=== PATIENT | male | born 1950 | race Caucasian/White ===

== ENCOUNTER 2023-10-30 09:00 | Inpatient (IN) | payer OTHER ==
[2023-10-30 11:02] LABS: Hematocrit 42.7 % (38.8-50.0); Hemoglobin 14.9 g/dL (13.5-17.5); Mean Corpuscular HGB CONC 34.9 g/dL (32.0-36.0); Mean Corpuscular Hemoglobin 32.8 pg (27.0-33.0); Mean Corpuscular Volume 94.1 fl (81.2-95.1); Mean Platelet Volume 10.7 fl (7.4-10.4); Platelet Count 183 10x3/uL (150-450); Red Blood Cell (RBC) Count 4.54 10x6/uL (4.32-5.72); White Blood Cell (WBC) Count 5.5 10x3/uL (3.5-10.5)
[2023-10-30 11:08] LABS: Anion Gap 13 mmol/L (10-20); BUN (Urea Nitrogen) 11 mg/dL (8.4-25.7); Calc. Creatinine Clearance 0 mL/min (70-130); Calcium 9.3 mg/dL (7.8-10.44); Carbon Dioxide 23 mmol/L (23-31); Chloride 106 mmol/L (98-107); Estimated GFR 92; Glucose 100 mg/dL (83-110); Potassium 4.7 mmol/L (3.5-5.1); Sodium 137 mmol/L (136-145)
[2023-10-31] MEDS ORDERED: Bupivacaine PF 0.5% 30 ML VIAL ONE (06:17)
[2023-10-31] MEDS ORDERED: EPINEPHrine 1 MG/ML VIAL ONE (06:17)
[2023-10-31] MEDS ORDERED: Dexamethasone 4 mg/ml Vial ONE (06:17)
[2023-10-31] MEDS ORDERED: Albumin 5% 500 ML ONE (06:17)
[2023-10-31] MEDS ORDERED: Heparin 10,000 UNITS/1 ML VIAL 30,000 UNITS in Sodium Chloride 0.9% 1,000 ML FS SCH (06:45)
[2023-10-31] MEDS ORDERED: CEFAZOLIN 1 GM VIAL ONE (06:45)
[2023-10-31] MEDS ORDERED: Lidocaine 2% PF 5 ML VIAL ONE (06:45)
[2023-10-31] MEDS ORDERED: PROPOFOL 20 ML ONE ×2 (06:45→08:53)
[2023-10-31] MEDS ORDERED: Norepinephrine 4 MG/4 ML VIAL ONE (06:45)
[2023-10-31] MEDS ORDERED: Aminocaproic Acid 5 GM/20 ML VIAL ONE ×2 (06:45→07:47)
[2023-10-31] MEDS ORDERED: Lidocaine 2% PF 100 mg/5 ml Syringe ONE ×2 (06:45→07:47)
[2023-10-31] MEDS ORDERED: Rocuronium Bromide 10 MG/ML (10ML VIAL) ONE ×2 (06:45→09:00)
[2023-10-31] MEDS ORDERED: PHENYLEPHRINE-NS 100 MCG/ML 10 ML SYRINGE ONE (06:45)
[2023-10-31] MEDS ORDERED: Midazolam HCl 2 mg/2 ml Vial ONE (06:46)
[2023-10-31] MEDS ORDERED: ePHEDrine Sulfate 50 MG/10 ML VIAL ONE (06:46)
[2023-10-31] MEDS ORDERED: Fentanyl 250 MCG/5 ML VIAL ONE (06:46)
[2023-10-31] MEDS ORDERED: Heparin 5,000 UNITS/ML VIAL ONE ×2 (06:53→07:47)
[2023-10-31] MEDS ORDERED: Lidocaine 1% MPF 2 ML VIAL ONE (06:54)
[2023-10-31] MEDS ORDERED: CEFAZOLIN 2 GM VIAL ONE (06:54)
[2023-10-31] MEDS ORDERED: Esmolol 100 MG/10 ML VIAL ONE (07:28)
[2023-10-31] MEDS: Esmolol 100 MG/10 ML VIAL IVP SCH (07:35)
[2023-10-31] MEDS ORDERED: Nitroglycerin 50 MG/250 ML BOT ONE (07:47)
[2023-10-31] MEDS ORDERED: Sodium Bicarb 50 mEq/50 ML VIAL ONE (07:47)
[2023-10-31] MEDS ORDERED: Cardioplegic Soln 1,000 ML BAG ONE (07:47)
[2023-10-31] MEDS ORDERED: Protamine Sulfate 250 MG/25 ML VIAL ONE (07:47)
[2023-10-31] MEDS ORDERED: Calcium Chloride 1 GM/10 ML Abboject SYRINGE ONE (07:47)
[2023-10-31] MEDS ORDERED: Vancomycin 1 GM VIAL ONE (07:47)
[2023-10-31] MEDS ORDERED: Potassium Chloride 60 mEq (30 mL) VIAL ONE (07:47)
[2023-10-31] MEDS ORDERED: Heparin 30,000 units/30 ml VIAL ONE (07:47)
[2023-10-31] MEDS ORDERED: Mannitol 12.5 GM/50 ML ONE (07:47)
[2023-10-31] MEDS ORDERED: Thrombin 5000 UNITS/5 ML VIAL ONE (07:47)
[2023-10-31] MEDS ORDERED: Papaverine 60 MG/2 ML VIAL ONE (07:47)
[2023-10-31] MEDS ORDERED: Magnesium 5 GM/10 ML VIAL ONE (07:47)
[2023-10-31] MEDS ORDERED: Heparin 10,000 UNITS/ 10 ML VIAL ONE (08:37)
[2023-10-31] MEDS ORDERED: Mag-Al 1200 mg/1200 mg/30 ML UDCUP PO PRN (12:28)
[2023-10-31] MEDS ORDERED: Bisacodyl 10 MG SUPP PR PRN (12:28)
[2023-10-31] MEDS ORDERED: NOREPINEPHRINE 8 MG/250 ML-D5W 250 ML IVPB PRN (12:28)
[2023-10-31] MEDS ORDERED: Promethazine HCl 25 MG/ML VIAL IM PRN (12:28)
[2023-10-31] MEDS ORDERED: Acetaminophen 325 MG TAB PO PRN (12:28)
[2023-10-31] MEDS ORDERED: Ipratropium/Albuterol 3 ML NEB NEB PRN (12:28)
[2023-10-31] MEDS ORDERED: Morphine 2 MG/ML VIAL SLOW IVP PRN (12:28)
[2023-10-31] MEDS ORDERED: Dextrose 5% in Water 1,000 ML IV PRN (13:00)
[2023-10-31] MEDS ORDERED: Dextrose 50% Abboject 50 ML SYRINGE SLOW IVP PRN (13:00)
[2023-10-31] MEDS ORDERED: Glucagon 1 MG/ML KIT SC PRN (13:00)
[2023-10-31 13:13] LABS: Actual Bicarbonate (HCO3a) 17.4 mEq/L (22-28); Base Excess (BEa) -8.8 mEq/L (-2.0 to +3.0); CO2 Tension 38.5 mmHg (35.0-45.0); Calcium, Ionized (arterial) 1.11 mmol/L (1.12-1.30); Carboxyhemoglobin (COHb) 0.4 gm% (0.0-3.0); Hematocrit-ABG 37 % (42.0-52.0); Hemoglobin (Hb) 12.6 g/dL (14.0-18.0); O2 Tension (PaO2), arterial 145.9 mmHg (> 70.0); Potassium - ABG Lab 4.12 mmol/L (3.70-5.30); pH, Arterial 7.273 (7.35-7.45)
[2023-10-31 13:15] LABS: ALV-art Gradient 233.775 mmHg (0-20); Puncture Site Arterial Line
[2023-10-31 13:33] LABS: INR-International Normal Ratio 1.3; Prothrombin Time 16.6 sec (12.0-14.7)
[2023-10-31 13:34] LABS: #Basophils Less than 0.03 10x3/uL (0.0-0.2); %Basophils 0.1 % (0.0-1.0); %Eosinophils 0.3 % (0.0-10.0); %Lymphocytes 11.6 % (21.0-51.0); %Monocytes 4.9 % (0.0-10.0); %Neutrophils 82.5 % (42.0-75.0); Hematocrit 33.9 % (42.0-52.0); Hemoglobin 11.7 g/dL (14.0-18.0); Mean Corpuscular HGB CONC 34.5 g/dL (32.0-36.0); Mean Corpuscular Hemoglobin 33.1 pg (27.0-31.0); Mean Platelet Volume 10.6 fL (7.4-10.4); PTT 33.4 sec (22.9-36.1); Platelet Count 100 10x3/uL (130-400); RBC Distribution Width 12.9 % (11.5-14.5); Red Blood Cell (RBC) Count 3.53 mill/uL (4.70-6.10)
[2023-10-31 13:46] LABS: Anion Gap 14 mmol/L (10-20); BUN (Urea Nitrogen) 13 mg/dL (8.4-25.7); Calc. Creatinine Clearance 111 mL/min (70-130); Carbon Dioxide 18 mmol/L (23-31); Chloride 110 mmol/L (98-107); Estimated GFR 94; Glucose 162 mg/dL (83-110); Potassium 4.2 mmol/L (3.5-5.1); Sodium 138 mmol/L (136-145)
[2023-10-31] MEDS: Post-Op Insulin Drip Protocol IVPB ONE (13:46)
[2023-10-31] MEDS: Sodium Chloride 0.9% 1,000 ML IV SCH (13:46)
[2023-10-31] MEDS: HUMULIN R 100 UNITS in Sodium Chloride 0.9% 100 ML IVPB SCH (13:47)
[2023-10-31 14:09] VITALS: BMI 27.3
[2023-10-31 14:14] LABS: Platelet Adequacy Comment Platelets Decreased
[2023-10-31] MEDS: Magnesium 2 GM/50 ML(in water) 2 GM in Premix 1 BAG IVPB SCH (14:31)
[2023-10-31] MEDS: CEFAZOLIN 2 GM in Sodium Chloride 0.9% 100 ML IVPB SCH (14:31)
[2023-10-31] MEDS: Albumin 5% 12.5 GM (250 mL) BOT IVPB PRN (16:31)
[2023-10-31 17:04] LABS: Actual Bicarbonate (HCO3a) 15.1 mEq/L (22-28); Base Excess (BEa) -9.8 mEq/L (-2.0 to +3.0); CO2 Tension 30.3 mmHg (35.0-45.0); Calcium, Ionized (arterial) 1.12 mmol/L (1.12-1.30); Carboxyhemoglobin (COHb) 0.7 gm% (0.0-3.0); Hematocrit-ABG 37 % (42.0-52.0); Hemoglobin (Hb) 12.6 g/dL (14.0-18.0); O2 Tension (PaO2), arterial 106.3 mmHg (> 70.0); Potassium - ABG Lab 3.82 mmol/L (3.70-5.30); pH, Arterial 7.315 (7.35-7.45)
[2023-10-31 17:05] LABS: ALV-art Gradient 141.025 mmHg (0-20); Puncture Site Arterial Line
[2023-10-31] MEDS: Sodium Bicarb 50 mEq/50 ML VIAL IVP SCH (17:28)
[2023-10-31] MEDS: Sodium Bicarb 50 mEq/50 ML VIAL ONE ×2 (17:28)
[2023-10-31] MEDS: HYDROcodone/Acetaminophen 5/325 mg Tablet PO PRN (17:49)
[2023-10-31] MEDS: Aspirin Chewable 81 MG TAB PO SCH (17:57)
[2023-10-31 18:40] LABS: Hematocrit 34.6 % (42.0-52.0); Hemoglobin 11.7 g/dL (14.0-18.0)
[2023-10-31 18:49] LABS: Potassium 3.9 mmol/L (3.5-5.1)
[2023-10-31] MEDS: Potassium Chloride 20 MEQ (100 mL) BAG IVPB PRN (20:29)
[2023-10-31] MEDS: Atorvastatin Calcium 20 MG TAB PO SCH (20:29)
[2023-10-31] MEDS: Famotidine/PF 20 mg/2ml Vial SLOW IVP SCH (20:29)
[2023-10-31] MEDS: fentaNYL 50 mcg/mL 1 mL Vial SLOW IVP PRN (20:44)
[2023-10-31] MEDS: hydrALAZINE 20 MG/ML VIAL SLOW IVP PRN (23:44)
[2023-11-01] MEDS: HYDROcodone/Acetaminophen 5/325 mg Tablet PO PRN (00:06)
[2023-11-01] MEDS: fentaNYL 50 mcg/mL 1 mL Vial SLOW IVP PRN (04:26)
[2023-11-01 04:59] LABS: #Basophils 0.05 10x3/uL (0.0-0.2); #Eosinphils Less than 0.03 10x3/uL (0.0-0.7); %Basophils 0.3 % (0.0-1.0); %Eosinophils 0.1 % (0.0-10.0); %Lymphocytes 4.8 % (21.0-51.0); %Monocytes 10.3 % (0.0-10.0); %Neutrophils 84.2 % (42.0-75.0); Hemoglobin 11.9 g/dL (14.0-18.0); Mean Corpuscular Hemoglobin 32.3 pg (27.0-31.0); Mean Corpuscular Volume 95.1 fL (78.0-98.0); Mean Platelet Volume 10.8 fL (7.4-10.4); Platelet Count 126 10x3/uL (130-400); RBC Distribution Width 13.2 % (11.5-14.5); Red Blood Cell (RBC) Count 3.68 mill/uL (4.70-6.10)
[2023-11-01] MEDS: Ketorolac Tromethamine 30 MG (1 mL) VIAL IVP SCH (05:11)
[2023-11-01 05:22] LABS: Anion Gap 14 mmol/L (10-20); BUN (Urea Nitrogen) 12 mg/dL (8.4-25.7); Calc. Creatinine Clearance 120 mL/min (70-130); Calcium 8.1 mg/dL (7.8-10.44); Carbon Dioxide 22 mmol/L (23-31); Chloride 108 mmol/L (98-107); Estimated GFR 95; Glucose 126 mg/dL (83-110); Potassium 3.9 mmol/L (3.5-5.1); Sodium 140 mmol/L (136-145)
[2023-11-01 05:43] LABS: Platelet Adequacy Comment Platelets Decreased; RBC Morphology Within Normal Limits
[2023-11-01] MEDS: Albumin 5% 12.5 GM (250 mL) BOT IVPB PRN (07:23)
[2023-11-01] MEDS: Ondansetron PF 4 MG/2 ML Vial IVP PRN (07:23)
[2023-11-01] MEDS: Aspirin 325 MG TAB PO SCH (08:30)
[2023-11-01] MEDS: Magnesium 2 GM/50 ML(in water) 2 GM in Premix 1 BAG IVPB SCH (08:32)
[2023-11-01] MEDS: Heparin 5,000 UNITS/ML VIAL SC SCH (10:30)
[2023-11-01] MEDS ORDERED: Insulin Glargine 30 UNITS/0.3 ML VIAL SC PRN (12:50)
[2023-11-01] MEDS: Insulin Glargine 30 UNITS/0.3 ML VIAL SC SCH (13:07)
[2023-11-01] MEDS: Insulin Regular 300 UNITS/3 ML VIAL SC PRN (16:58)
[2023-11-01] MEDS: Famotidine 20 MG TAB PO SCH (21:09)
[2023-11-01] MEDS: diphenhydrAMINE 25 MG CAP PO PRN (21:31)
[2023-11-01] MEDS: Melatonin 3 MG TAB PO PRN (21:31)
[2023-11-02 04:05] LABS: #Basophils Less than 0.03 10x3/uL (0.0-0.2); %Basophils 0.2 % (0.0-1.0); %Eosinophils 4.6 % (0.0-10.0); %Lymphocytes 12.1 % (21.0-51.0); %Monocytes 9.8 % (0.0-10.0); %Neutrophils 72.9 % (42.0-75.0); Hemoglobin 9.4 g/dL (14.0-18.0); Mean Corpuscular HGB CONC 33.6 g/dL (32.0-36.0); Mean Corpuscular Hemoglobin 32.6 pg (27.0-31.0); Mean Corpuscular Volume 97.2 fL (78.0-98.0); Mean Platelet Volume 11.1 fL (7.4-10.4); Platelet Count 90 10x3/uL (130-400); RBC Distribution Width 13.5 % (11.5-14.5); Red Blood Cell (RBC) Count 2.88 mill/uL (4.70-6.10)
[2023-11-02 04:15] LABS: Anion Gap 7 mmol/L (10-20); BUN (Urea Nitrogen) 18 mg/dL (8.4-25.7); Calc. Creatinine Clearance 106 mL/min (70-130); Calcium 8.1 mg/dL (7.8-10.44); Carbon Dioxide 26 mmol/L (23-31); Chloride 107 mmol/L (98-107); Estimated GFR 92; Glucose 118 mg/dL (83-110); Potassium 4.1 mmol/L (3.5-5.1); Sodium 136 mmol/L (136-145)
[2023-11-02 04:32] LABS: Platelet Adequacy Comment Platelets Decreased; RBC Morphology Within Normal Limits
[2023-11-02] MEDS: Furosemide 20 MG TAB PO SCH (09:38)
[2023-11-02] MEDS: Bisacodyl 5 MG TAB PO PRN (18:25)
[2023-11-02] MEDS: Metoprolol Tartrate 25 MG TAB PO SCH (18:26)
[2023-11-02] MEDS: Guaifenesin DM 100-10/5 ML UDCUP PO PRN (18:27)
[2023-11-02] MEDS: Amiodarone 200 MG TAB PO SCH (21:44)
[2023-11-03 04:31] LABS: #Basophils Less than 0.03 10x3/uL (0.0-0.2); %Basophils 0.1 % (0.0-1.0); %Eosinophils 5.1 % (0.0-10.0); %Lymphocytes 17.8 % (21.0-51.0); %Monocytes 12.7 % (0.0-10.0); %Neutrophils 64.2 % (42.0-75.0); Anion Gap 9 mmol/L (10-20); BUN (Urea Nitrogen) 15 mg/dL (8.4-25.7); Calc. Creatinine Clearance 121 mL/min (70-130); Calcium 8.5 mg/dL (7.8-10.44); Carbon Dioxide 24 mmol/L (23-31); Chloride 109 mmol/L (98-107); Estimated GFR 96; Glucose 117 mg/dL (83-110); Hematocrit 26.6 % (42.0-52.0); Hemoglobin 9.1 g/dL (14.0-18.0); Mean Corpuscular HGB CONC 34.2 g/dL (32.0-36.0); Mean Corpuscular Hemoglobin 32.4 pg (27.0-31.0); Mean Corpuscular Volume 94.7 fL (78.0-98.0); Mean Platelet Volume 10.9 fL (7.4-10.4); Platelet Count 92 10x3/uL (130-400); Potassium 4.1 mmol/L (3.5-5.1); RBC Distribution Width 13.2 % (11.5-14.5); Red Blood Cell (RBC) Count 2.81 mill/uL (4.70-6.10); Sodium 138 mmol/L (136-145)
[2023-11-03 11:22] VITALS: BP 116/61; TEMP 97.1
== END 2023-11-03 12:05 | disposition home or self-care (01) | DRG 236 ==
LOC: SURG A 10-31 06:13 → CCU 10-31 12:34 → 2NO 11-02 09:02
PROVIDERS: ADMIT Student in an Organized Health Care Education/Training Program; ATTEND Student in an Organized Health Care Education/Training Program
PROC: 02100Z9 Bypass Coronary Artery, One Artery from Left Internal Mammary, Open Approach (ICD-10-PCS; principal; 2023-10-31)
PROC: 021109W Bypass Coronary Artery, Two Arteries from Aorta with Autologous Venous Tissue, Open Approach (ICD-10-PCS; 2023-10-31)
PROC: 06BQ0ZZ Excision of Left Saphenous Vein, Open Approach (ICD-10-PCS; 2023-10-31)
PROC: 02L70CK Occlusion of Left Atrial Appendage with Extraluminal Device, Open Approach (ICD-10-PCS; 2023-10-31)
PROC: 5A1221Z Performance of Cardiac Output, Continuous (ICD-10-PCS; 2023-10-31)
PROC: 4A133R1 Monitoring of Arterial Saturation, Peripheral, Percutaneous Approach (ICD-10-PCS; 2023-10-31)
PROC: 3E033XZ Introduction of Vasopressor into Peripheral Vein, Percutaneous Approach (ICD-10-PCS; 2023-10-31)
PROC: 30233J1 Transfusion of Nonautologous Serum Albumin into Peripheral Vein, Percutaneous Approach (ICD-10-PCS; 2023-10-31)
DX: I25.119 Atherosclerotic heart disease of native coronary artery with unspecified angina pectoris (principal); I97.89 Other postprocedural complications and disorders of the circulatory system, not elsewhere classified; Z98.890 Other specified postprocedural states; Z79.899 Other long term (current) drug therapy; I48.91 Unspecified atrial fibrillation; Z90.49 Acquired absence of other specified parts of digestive tract; Z79.82 Long term (current) use of aspirin
CPT/HCPCS: 36415; 36416; 36430; 71045; 80048; 82805; 85025; 85027; 85610; 85730; 86850; 86900; 86901; 93005; 93010; 93798; 94002; A4311; A4648; C1751; C1889; J0171; J0360; J0665; J0690; J1100; J1642; J1644; J1815; J1885; J2001; J2150; J2250; J2405; J2440; J2704; J2720; J3010; J3370; J3475; J3480; J3490; J7050; P9045; S0017; S0028

== ENCOUNTER 2025-06-30 09:31 | Outpatient (CLI) | payer OTHER | END 2025-06-30 09:32 | disposition home or self-care (01) | LOC: LABBT 09:31 | PROVIDERS: ATTEND Student in an Organized Health Care Education/Training Program | DX: Z01.818 Encounter for other preprocedural examination (principal); M17.11 Unilateral primary osteoarthritis, right knee | CPT/HCPCS: 71046 ==

== ENCOUNTER 2025-07-07 07:15 | Observation (INO) | payer OTHER ==
[2025-06-30 09:40] VITALS: BMI 27.7
[2025-06-30 10:18] LABS: #Basophils Less than 0.03 10x3/uL (0.0-0.2); #Eosinophils 0.09 10x3/uL (0.0-0.7); #Monocytes 0.53 10x3/uL (0.11-0.59); #Neutrophils 2.44 10x3/uL (1.40-6.50); %Basophils 0.4 % (0.0-1.0); %Eosinophils 2.0 % (0.0-10.0); %Lymphocytes 31.6 % (21.0-51.0); %Monocytes 11.8 % (0.0-10.0); %Neutrophils 54.2 % (42.0-75.0); Hematocrit 41.6 % (42.0-52.0); Hemoglobin 14.2 g/dL (14.0-18.0); Mean Corpuscular Hemoglobin 32.4 pg (27.0-31.0); Mean Corpuscular Volume 95.0 fL (78.0-98.0); Platelet Count 148 10x3/uL (130-400); Red Blood Cell (RBC) Count 4.38 mill/uL (4.70-6.10); White Blood Cell (WBC) Count 4.50 10x3/uL (4.8-10.8)
[2025-06-30 10:35] LABS: INR-International Normal Ratio 1.2; Prothrombin Time 14.8 sec (12.0-14.7)
[2025-06-30 10:48] LABS: ALT (SGPT) 21 U/L (Less than 45); AST (SGOT) 20 U/L (11-34); Albumin 4.3 g/dL (3.1-4.5); Alkaline Phosphatase 51 U/L (40-110); Anion Gap 12 mmol/L (10-20); BUN (Urea Nitrogen) 20 mg/dL (8.4-25.7); Bilirubin, Total 0.7 mg/dL (0.3-1.2); Calc. Creatinine Clearance 0 mL/min (70-130); Calcium 9.2 mg/dL (7.8-10.44); Carbon Dioxide 24 mmol/L (23-31); Chloride 105 mmol/L (98-107); Globulin 2.7 g/dL (2.4-3.5); Glucose 104 mg/dL (83-110); Potassium 4.3 mmol/L (3.5-5.1); Sodium 137 mmol/L (136-145)
[2025-07-07] MEDS ORDERED: Tranexamic Acid 1,000 MG/10 ML VIAL ONE (08:02)
[2025-07-07] MEDS ORDERED: Gabapentin 300 MG CAP ONE (08:02)
[2025-07-07] MEDS ORDERED: Vancomycin HCl 1.5 GM VIAL ONE (08:03)
[2025-07-07] MEDS ORDERED: Acetaminophen 500 MG TAB ONE (08:03)
[2025-07-07] MEDS ORDERED: Ropivacaine 0.5% HCl/PF (150 MG/30 ML VIAL) ONE (08:45)
[2025-07-07] MEDS ORDERED: oxyCODONE 5 MG TAB PO PRN (09:10)
[2025-07-07] MEDS ORDERED: Ondansetron PF 4 MG/2 ML Vial IVP PRN ×2 (09:15→15:37)
[2025-07-07] MEDS ORDERED: Acetaminophen 325 MG TAB PO SCH (09:15)
[2025-07-07] MEDS ORDERED: Ropivacaine 0.2% 550 ML 550 ML NERVE BLCK SCH (09:15)
[2025-07-07] MEDS ORDERED: Lidocaine 1% PF 5 ML VIAL ONE (11:18)
[2025-07-07] MEDS ORDERED: Bupivacaine 0.25% HCL 30 ML VIAL ONE (12:15)
[2025-07-07] MEDS ORDERED: PROPOFOL 200 MG/20 ML VIAL ONE (12:33)
[2025-07-07] MEDS ORDERED: Ondansetron PF 4 MG/2 ML Vial ONE (12:45)
[2025-07-07] MEDS ORDERED: PHENYLEPHRINE-NS 100 MCG/ML 10 ML SYRINGE ONE (14:45)
[2025-07-07] MEDS ORDERED: fentaNYL PF 100 MCG/2 ML SYRINGE ONE (15:32)
[2025-07-07] MEDS ORDERED: diphenhydrAMINE 25 MG CAP PO PRN (15:37)
[2025-07-07] MEDS: Acetaminophen 500 MG TAB PO SCH (16:56)
[2025-07-07] MEDS: oxyCODONE 5 MG TAB PO PRN (17:50)
[2025-07-07] MEDS: Ferrous Gluconate 324 MG TAB PO SCH (20:29)
[2025-07-07] MEDS: Senokot S 8.6-50 MG TAB PO SCH (20:29)
[2025-07-08 05:11] LABS: Hematocrit 40.2 % (42.0-52.0); Hemoglobin 13.3 g/dL (14.0-18.0); Mean Corpuscular Hemoglobin 31.4 pg (27.0-31.0); Mean Corpuscular Volume 94.8 fL (78.0-98.0); Platelet Count 151 10x3/uL (130-400); Red Blood Cell (RBC) Count 4.24 mill/uL (4.70-6.10); White Blood Cell (WBC) Count 9.35 10x3/uL (4.8-10.8)
[2025-07-08 05:43] LABS: Anion Gap 16 mmol/L (10-20); BUN (Urea Nitrogen) 16 mg/dL (8.4-25.7); Calc. Creatinine Clearance 94 mL/min (70-130); Calcium 8.7 mg/dL (7.8-10.44); Carbon Dioxide 22 mmol/L (23-31); Chloride 104 mmol/L (98-107); Glucose 151 mg/dL (83-110); Potassium 4.2 mmol/L (3.5-5.1); Sodium 138 mmol/L (136-145)
[2025-07-08 08:10] VITALS: BP 150/75; TEMP 98.3
[2025-07-08] MEDS: Aspirin 81 mg Enteric Coated Tablet PO SCH (09:40)
[2025-07-08] MEDS: Multivitamin W/ Minerals 1 TAB PO SCH (09:40)
== END 2025-07-08 12:22 | disposition home or self-care (01) ==
LOC: SDC 07:15 → SURG A 16:42
PROVIDERS: ADMIT Student in an Organized Health Care Education/Training Program; ATTEND Student in an Organized Health Care Education/Training Program
PROC: 0SRC0JZ Replacement of Right Knee Joint with Synthetic Substitute, Open Approach (ICD-10-PCS; principal; 2025-07-07)
DX: M17.11 Unilateral primary osteoarthritis, right knee (principal); Z91.018 Allergy to other foods; Z91.048 Other nonmedicinal substance allergy status
CPT/HCPCS: 0055T; 27447; 64447; 36415; 80048; 80053; 85025; 85027; 85610; 86850; 86900; 86901; 87081; A4306; C1713; C1776; C1889; J0665; J1100; J2250; J2405; J2704; J2795; J3010; J3373